=== PATIENT | male | born 1980 | race Caucasian/White ===

== ENCOUNTER 2017-02-03 08:00 | Day surgery (SDC) | payer OTHER ==
[2017-02-03] VITALS (13 sets, daily range): BP systolic 109–129; BP diastolic 56–77; PULSE 47–73; RESP 10–20; O2SAT 95–100
[~2017-02-03] VITALS: Ht 182.9 cm; Wt 91.0 kg
--- NOTE | 2017-02-03 07:05 | PCM.HPANE ---
Patient Data Surgeon Admitting Provider: Attending Provider:Tyrese Lim DO Primary Care Physician:Michelle Goodrich Other Provider:Rob Benjamin Anesthesia Reason for Visit Right Distal Fibula Fracture Ht/WT & BMI Height (Feet): 6 Height (Inches): 0 Weight (Kilograms): 91 Body Mass Index 27.00 Allergies Coded Allergies: No Known Allergies (Unverified , 06/29/16) Past Anesthesia History Anesthesia History: Denies:: Abnormal Airway, Anesthesia Reactions, Difficult Intubation, Fam Anesthesia Reaction, Fam Malignant Hypertherm, Malignant Hyperthermia Diabetes History Hx Diabetes?: No MRSA MRSA: No Medications Hypertension Medication: No Home Meds Incl Beta Elena: No Reported Medications Hydrocodone-Acetaminophen 7.5-325 mg 1 Each Tablet1 Tablet PO Q4H PRN For Pain Ref 0 01/30/17 Hydrocodone-Acetaminophen 5-325 mg 1 Each Tablet1 Tablet PO Q8H PRN For Pain Ref 0 01/30/17 History History of ENT Problems?: No HEENT History: Denies:: Abnormal Airway Cataracts Difficult Intubation Dysphagia Glaucoma Hearing Problem Sinus Problem TMJ Denture Type: None Teeth Condition: Within Normal Limits Hx of Heart Problems?: No Cardiovascular History: Denies:: AICD Abdominal Aortic Aneurism Atrial Fibrillation Cardiac Surgery Chest Pain Congestive Heart Failure Coronary Artery Disease Edema Heart Murmur Hypertension Irregular Heartbeat Pacemaker Peripheral Vascular Rheumatic Fever Thrombophlebitis Valvular Heart Disease Hx of Respiratory Problem?: No Respiratory History: Denies:: Asthma COPD Emphysema Oxygen Administration Pneumonia Tuberculosis Use of C-PAP Machine Use of Inhalers / NEBS Hx Neurologic Problems?: No Neurological History: Denies:: Alzheimer's Disease CVA Dementia Dizziness Headaches Multiple Sclerosis Parkinson's Disease Seizures Hx of GI Problems?: No Hx of Problems?: No Genitourinary History: Denies:: Kidney Stones Urinary Tract Infection Male Hx: Denies:: Prostate Problems Skin History: Positive for:: History Skin Disorders? (left wrist blister from using crutches) Denies:: Pressure Ulcers Hx Musculoskeletal Problems?: Yes Musculoskeletal History: Positive for:: Musculoskeletal Trauma (right ankle fx current admission ) Denies:: Back Injury Fibromyalgia Myasthenia Gravis Osteoarthritis Systemic Lupus Hx of Psycho/Social Problems?: Yes Psycho Social History: Positive for:: Anxiety (situational - no meds) Denies:: Hx Depression Hx Surgeries?: Yes (R hand) Hx Any Other Health Problems?: Yes Other History: Positive for:: Hospitalization (hx of skillsaw injury) Denies:: Cancer Thyroid Disease History Blood Transfusions: Positive for:: Accept Blood Products? Denies:: Blood Transfusions Hx Diabetes: No Hx Alcohol Use: YesAlcoholic Drinks Per Day: 10 drinks weeklyHx Substance Use : No (prior hx of cocaine use 2011) Smoking Status: Unknown if Ever Smoker Have You Smoked inLast 12 mo: No Stop/Bang S-Snoring: Do You Snore Loudly: No T-Tired: feel tired, fatigued: No O-Obsered: Observed not breath: No P-Blood Pressure: treated: No B- Body Mass Index > 35 kg/m2: No A- Age over 50: No N- Neck Large Circumference: No G- Gender Male: Yes DEE Total Score: 1 Risk Assessment Category Category 1A: Patient has history of documented sleep apnea, and HAS NOT received any narcotic, sedative or anesthesia administration during this stay. Category 1B: Patient has history of documented sleep apnea, and HAS received any narcotic , sedative or anesthesia administration during this stay Category 2: Patient has SUSPECTED Obstructive Sleep Apnea, and HAS received any narcotic , sedative or anesthesia administration during this stay. Category 3: Patient has SUSPECTED Obstructive Sleep Apnea and HAS NOT received narcotic, sedative or anesthesia administration during this stay. Category 4: Outpatient in Procedural Areas with known sleep apnea or who screen positive for High Risk via the STOP/BANG questionnaire. Exam Exam General Appearance: Alert, Oriented X3, Cooperative HEENT/AIRWAY: MP 2, Neck Movement (from), Mouth Opening (wnl) Lungs: Clear to Auscultation Heart: Exam Unremarkable Plan Impression Patient chart reviewed, patient interviewed and anesthestic plan with risks, benefits, and alternatives discussed, and informed consent obtained. ASA Physical Status: ASA2 Mod Systemic Disease Anesthetic Plan: GA Bene/Risks/Altern/Consents: Yes HP Complete Prior to Induction: Yes Jose Calvin MD Feb 03, 2017 07:05
[~2017-02-03 08:00] MED LIST: Acetaminophen IV 1,000 MG in IV Premix 1 EACH IV ONE; HYDR-3825 PO; HYDR-4003 PO; Lactated Ringer's 1,000 ML IV ONE
[2017-02-03] MEDS ORDERED: fentaNYL-PF 50 mCg/mL 2 mL Inj ONE (08:01)
[2017-02-03] MEDS ORDERED: Ondansetron 2 mg/mL 2 mL Inj ONE (08:01)
[2017-02-03] MEDS ORDERED: Rocuronium 10 mg/mL 5 mL Inj ONE (08:01)
[2017-02-03] MEDS ORDERED: Glycopyrrolate 0.2 MG/ML 1mL Inj ONE (08:01)
[2017-02-03] MEDS ORDERED: Neostigmine 1 mg/mL 10 mL Inj ONE (08:01)
[2017-02-03] MEDS ORDERED: Propofol 10,000 mCg/mL 20 mL Inj ONE (08:01)
[2017-02-03] MEDS ORDERED: Lactated Ringer's 1,000 ML IV ONE (08:31)
[2017-02-03] MEDS ORDERED: LORazepam 1 mg Tablet PO PRN (09:00)
[2017-02-03] MEDS ORDERED: HYDROmorphone 0.5 mg/0.5 mL iSecure Syringe IVPUSH PRN (09:00)
[2017-02-03] MEDS ORDERED: fentaNYL-PF 50 mCg/mL 2 mL Inj IVPUSH PRN (09:00)
[2017-02-03] MEDS ORDERED: CeFAZolin Inj 2 gm / 50mL D5W IV ONE (09:09)
[2017-02-03] MEDS ORDERED: Ropivacaine-PF 0.5% 30 mL Inj INJ ONE (12:36)
[2017-02-03] MEDS ORDERED: Lactated Ringer's 1,000 ML IV SCH (12:59)
[2017-02-03] MEDS ORDERED: Lactated Ringer's 500 ML IV PRN (12:59)
[2017-02-03] MEDS ORDERED: hydrALAZINE 20 mg/mL Inj IVPUSH PRN (13:00)
[2017-02-03] MEDS ORDERED: EPHEDrine Sulfate 50 mg/mL Inj IVPUSH PRN (13:00)
[2017-02-03] MEDS ORDERED: Atropine 0.4 mg/mL Inj IVPUSH PRN (13:00)
[2017-02-03] MEDS ORDERED: Dexamethasone 4 mg/mL Inj IVPUSH PRN (13:00)
[2017-02-03] MEDS ORDERED: Phenylephrine 10,000 mCg/mL Inj IVPUSH PRN (13:00)
[2017-02-03] MEDS ORDERED: Labetalol 5 mg/mL 4 mL Inj IV PRN (13:00)
[2017-02-03] MEDS ORDERED: Ondansetron 2 mg/mL 2 mL Inj IVPUSH PRN ×2 (13:00→13:40)
[2017-02-03] MEDS ORDERED: diphenhydrAMINE 25 mg Capsule PO PRN (13:40)
[2017-02-03] MEDS ORDERED: Magnesium Hydroxide 10 mL Oral Concentration PO PRN (13:40)
[2017-02-03] MEDS ORDERED: Polyethylene Glycol (PEG) 17 Gm Powder PO PRN (13:40)
[2017-02-03] MEDS ORDERED: HYDROmorphone 2 mg/mL Inj IVPUSH PRN (13:40)
--- NOTE | 2017-02-03 13:43 | PCM.ANEP1 ---
Post Anesthesia PACU Phase 1 Assessment Vital Signs Vital Signs Date Time Temp Pulse Resp B/P Pulse Ox O2 Delivery O2 Flow Rate FiO2 02/03/17 08:32 36.4 73 14 119/73 95 Room Air Anesthetic Administered: GA Level of Alertness: Awake, talking DE LEON's with Equal Strength: Yes Pain: No Nausea or Vomiting: No CV Function & Hydration Stable: Yes Airway Device: Oxygen Delivery: Room Air Lungs: Normal Air Movement PACU Phase 2 Assessment Complications: No Follow up Care: No Patient Instructions Provided: N/A Jose Calvin MD Feb 03, 2017 13:43
[2017-02-03] MEDS: fentaNYL-PF 50 mCg/mL 2 mL Inj IVPUSH PRN ×4 (13:48→14:11)
[2017-02-03] MEDS: HYDROmorphone 1 mg/mL Inj IVPUSH PRN ×4 (13:48→23:35)
--- NOTE | 2017-02-03 15:00 | NUR ---
POST OP Pt arrived to OSC unit, 1008, via gurney, from PACU at 1500. Pt able to scoot self over to bed with minimal assistance. A&OX3 - groggy but awake, VSS - CPOx in place d/t narcotic admin, Moves all extremities with exception to RLE s/p ORIF, Splint and dressing CDI. Foot elevated and iced. IV patent and infusing. Pt c/o pain 7-8/10, 0.5mg IVP Dilaudid given. All belongings brought down with pt. Family present. Pt oriented to room and call light in reach. Tolerating ice water - ADAT. Care continues.
[2017-02-03] MEDS ORDERED: HYDROmorphone 0.5 mg/0.5 mL iSecure Syringe ONE (15:15)
[2017-02-03] MEDS: 0.9% Sodium Chloride 1,000 ML IV SCH (15:22)
[2017-02-03] MEDS: Sodium Chloride LOK Flush 10 mL Syringe IV SCH (16:30)
[2017-02-03] MEDS ORDERED: CeFAZolin Inj 2 GM in IV Premix 1 EACH IV SCH (16:30)
[2017-02-03] MEDS: oxyCODONE-Acetamin 5-325 mg Tablet PO PRN ×3 (17:38→21:29)
--- NOTE | 2017-02-03 18:48 | NUR ---
Late Ancef Pt receiving 1630 Post op Ancef dose late d/t pharmacy delay. Call to pharmacy prior to 1630 (~1615) and inquired re: dose. Stated they would look into it and send one up. Noted that original order dc'd and new dose scheduled for 1700. Still no dose received. Called for second time and talked to different pharmacy technician per diem, stated 'I just sent that dose a couple minutes ago.' Waited for dose, no arrival. peoplesoft consultant called and spoke with pharmacist - dose received at ~1830.
[2017-02-03] MEDS: CeFAZolin Inj 2 GM in IV Premix 1 EACH IV SCH (20:05)
[2017-02-03] MEDS: Senna-Docusate 8.6-50 mg Tablet PO SCH (20:06)
[2017-02-03] MEDS ORDERED: HYDROmorphone 1 mg/mL Inj IVPUSH PRN (22:47)
--- NOTE | 2017-02-04 00:01 | OP ---
[address] [address] OPERATIVE REPORT PATIENT: KAITLYNN PEARSON : 1980 MR#: [id number] ADMIT: 02/03/2017 JOB ID: [id number] DATE OF SURGERY: 02/03/2017 PREOPERATIVE DIAGNOSIS(ES): Right bimalleolar ankle fracture. POSTOPERATIVE DIAGNOSIS(ES): Right bimalleolar ankle fracture. PROCEDURE: Right ankle open reduction and internal fixation of bimalleolar fracture with syndesmotic fixation. SURGEON: Tyrese Lim MD. ANESTHESIA: General. INDICATIONS: The patient is a 36-year-old male who injured his right ankle while working in [place]. He was unable to ambulate after the injury and had a posterior malleolus and lateral malleolus fracture. We did a stress x-ray and he had medial clear space widening on the film; and therefore, I felt that this fracture was unstable and would be best treated with open reduction and internal fixation. We discussed the risks, benefits and possible complications of surgery including, but not limited to, injury to nerves and vessels, infection, bleeding, incomplete relief of symptoms, stiffness, need for additional procedures. The patient had good understanding, all questions were answered, and he wished to proceed. PROCEDURE IN DETAIL: The patient was brought to the operating room. He was given a preoperative antibiotic and general anesthetic. The right lower extremity was sterilely prepped and draped. A tourniquet was used for hemostasis. An incision was made over the posterolateral border of the fibula. Dissection was carefully carried through to the subcutaneous tissue and the fracture was encountered. The fracture hematoma and some interposed periosteum was removed from the fracture site. The wound was irrigated and the fracture was then reduced with a combination of traction and bone reduction forceps. A lag screw was then placed. I elected to use a 2.7 mm 24 mm length lag screw which had excellent purchase. This was placed in standard AO fashion technique. Next, a one-third tubular plate was bent in order to accommodate his anatomy and secured proximally with a 3.5 cortex screw and then distally with two 4-0 cancellous screws yielding excellent fixation. Two additional cortex screws were placed proximally. I then did a Cotton test and the patient did still have some residual medial clear space widening. Therefore, I placed a 3.5 mm syndesmotic screw across four cortices into the tibia, yielding anatomic reduction of the mortise. The C-arm imaging was used to confirm reduction. The wound was then irrigated and closed with 2-0 and 3-0 Vicryl for the fascia and subcu. The skin was closed with interrupted 4-0 nylon suture. Naropin was added as an adjunct local anesthetic. Sterile dressings were applied, as well as posterior splint with stirrup. The patient tolerated the procedure well. Blood loss was minimal. POSTOPERATIVE PROTOCOL: Have the patient remain nonweightbearing on the right lower extremity. Ice and elevate and use crutches. Will plan to keep him overnight in the hospital for antibiotics and pain control, and also to work with physical therapy. Will have him follow back up in the clinic in two weeks for cast removal and suture removal at that time, and we will switch him to a short-leg cast for an additional 3-4 weeks, and then have him follow up with myself with cast removal and x-rays and transition to a CAM walker boot at that time. Anticipate that he will need to be off work for 90 days or more. Also, he is given a prescription for Percocet 5/325 for pain.
[2017-02-04] MEDS: Sodium Chloride LOK Flush 10 mL Syringe IV SCH ×3 (00:30→16:30)
[2017-02-04 00:53] VITALS: BP 105/61; PULSE 81; RESP 18; O2SAT 94
[2017-02-04] MEDS: 0.9% Sodium Chloride 1,000 ML IV SCH ×2 (02:31→09:40)
[2017-02-04] MEDS: HYDROmorphone 1 mg/mL Inj IVPUSH PRN ×3 (02:32→07:22)
[2017-02-04] MEDS: CeFAZolin Inj 2 GM in IV Premix 1 EACH IV SCH (04:50)
--- NOTE | 2017-02-04 05:00 | NUR ---
Pain Pain not well controlled at start of shift, discussed with Md continuous improvement coach; obtained range for IV medication which has been keeping pt more comfortable. Continuing to use ice and elevation as well. Pain reported under better control by chemist organic, pt observed sleeping. Pulse oximetry in use. Hourly rounding ongoing.
[2017-02-04 06:34] VITALS: BP 112/68; PULSE 62; RESP 20; O2SAT 93
[2017-02-04 07:47] VITALS: BP 73/73; PULSE 68; RESP 18; O2SAT 97
[2017-02-04] MEDS: Senna-Docusate 8.6-50 mg Tablet PO SCH (08:30)
[2017-02-04] MEDS: oxyCODONE-Acetamin 5-325 mg Tablet PO PRN (09:28)
[2017-02-04] MEDS ORDERED: hydrOXYzine Pamoate 25 mg Capsule PO PRN (10:30)
--- NOTE | 2017-02-04 11:46 | NUR ---
Pt. screened and interviewed about home environment. Home has ramp entry, walk-in shower with seat, manageable toilet. He has good support from his SO. Pt. has been using crutches prior to surgery maintaining NWB without incident. He reports independence with dressing and ADLs. Pt. not able to get out of bed during visit secondary to pain. OT will be unable to formally assess pt. today due to scheduling. But based on pt's age, athleticism, experience with other fractures, I don't anticipate pt. to have any excessive functional difficulty. I did recommend that pt. identify a hobby/interest/activity that is sedentary in nature while recovering. No charge time. Karlos Briseno, OTR/L
[2017-02-04] MEDS: oxyCODONE-Acetamin 10-325 mg Tablet PO PRN ×2 (12:38→16:05)
--- NOTE | 2017-02-04 14:11 | NUR ---
Social Work- Brief Note/Discharge Data: EMR reviewed. Pt is a 36 year old male admitted as a day surgery pt. Pt's insurance is [facility]. NOK is mother Patsy Ceballos, . SW received discharge planning order for pt. SW met with pt at bedside regarding discharge plan. Pt resides at home where his girlfriend assists with ADLs. Pt is non weightbearing for six more weeks. PT and OT have cleared pt for home. No discharge needs identified at this time. Pt to discharge home with mother to transport via POV. Assessment: Pt who is non weightbearing for six weeks Plan: PT and OT have cleared pt for home. No discharge needs identified at this time. Pt to discharge home with mother to transport via POV. GER Ybarra
--- NOTE | 2017-02-04 14:16 | NUR ---
PAIN Pt c/o pain 7-8/10. Had received IVP medications throughout the night. Pt aware of the need to be on PO meds for discharge readiness. PA-Shira present and aware of pt c/o pain. Nonverbally pt does not appear to be in severe pain; although stating he is. Pt noted to be sleeping just prior to noon till 1215 with intermittent checks and then called just after 1230 and received Percocet with Vistaril. dial marker present and administered for pt, encouraged pt to be up and working with PT. Worked with PT at ~1330 or so and per PT, pt 'jumped' right up and was cleared from their standpoin, still stating 7-8/10 pain. Care continues.
[2017-02-04 14:27] VITALS: BP 127/84; PULSE 80; O2SAT 97
--- NOTE | 2017-02-04 15:38 | PCM.PNORTH ---
Subjective Date of Service: Feb 04, 2017 Visit Information: Reason for Visit Right Distal Fibula Fracture Surgery/Surgery Date Post-Op Day # Date of Admission: Hospital Day # Subjective Status post day #1 right ankle ORIF with syndesmotic fixation. Patient doing well, understands that his ankle well heard. Agrees that he will be able to be discharged with Percocet and oxycodone for breakthrough pain, believes that he can manage this on his own as he has had fractures in the past. He would like to go home today. Postop General: No Shortness of Breath, No Chest Pain Objective Exam Objective Patient is alert and oriented 3. Answering questions appropriately. Patient is sitting up in the bed and not in acute distress today. Dressing and splint are clean dry and intact. Calf is soft and nontender. Sensation and pulses intact, patient able to wiggle toes. Vital Signs and I/O Vital Sign - Last Date Time Temp Pulse Resp B/P Pulse Ox O2 Delivery O2 Flow Rate FiO2 02/04/17 14:27 36.9 80 127/84 97 Room Air 02/04/17 07:47 18 Intake and Output 02/03/17 02/03/17 02/04/17 Cumulative From/Thru 15:00 23:00 07:00 01/30/17 17:09 - 02/04/17 06:34 Intake Total 1100 ml 400 ml 2258 ml 3758 ml Output Total 325 ml 1550 ml 1875 ml Balance 1100 ml 75 ml 708 ml 1883 ml Intake Oral 400 ml 850 ml 1250 ml IV Total 1100 ml 1408 ml 2508 ml Output Urine Total 325 ml 1550 ml 1875 ml # Bowel Movements 0 0 Assessment & Plan Impression Status post day #1 right ankle ORIF with syndesmotic fixation. Patient stable, ready to go home. Problems: Plan Patient will remain nonweightbearing on the right lower extremity. Patient will remain in splint and keep this clean dry and intact for 2 weeks. Patient will use crutches for ambulation. Patient will be given a prescription for Percocet 5/325 mg tablets to take 1-2 pills every 6 hours if needed for pain, patient will also be given oxycodone 5 mg tablets to take in between these doses for breakthrough pain if needed only. Patient will follow up in 2 [facility] with PA for suture removal, x-rays and placement into cast. Patient will follow-up in [address] Tyrese Lim. Milton Silva PA-C Feb 04, 2017 15:38
--- NOTE | 2017-02-04 15:39 | PCM.DIORTH ---
Ortho Discharge Instruction Date of Service: Feb 04, 2017 Dates of Hospitalization Date of Hospital Admission 02/03/2017 Providers Admitting Physician: Primary Care Physician: Kari Barth PA-C Attending Physician: Tyrese Lim DO Diet Discharge Diet: No restrictions Activity Right Lower Extremity: Non-weight Bearing Additional Instructions Discharge Instructions Patient will remain nonweightbearing on the right lower extremity. Patient will remain in splint and keep this clean dry and intact for 2 weeks. Patient will use crutches for ambulation. Patient will be given a prescription for Percocet 5/325 mg tablets to take 1-2 pills every 6 hours if needed for pain, patient will also be given oxycodone 5 mg tablets to take in between these doses for breakthrough pain if needed only. Patient will follow up in 2 weeks at [facility] with BOLA for suture removal, x-rays and placement into cast. Patient will follow-up in [address] Tyrese Lim. Milton Silva PA-C Feb 04, 2017 15:39
--- NOTE | 2017-02-04 15:49 | PCM.DC.ORT ---
Discharge Summary Date of Service: Feb 04, 2017 Date of Hospital Admission: 02/03/2017 Date of Surgery: Feb 03, 2017 Date of Discharge: Feb 04, 2017 Reason for Hospitalization: Right ankle fracture bimalleolar with syndesmotic disruption Procedures Performed: Right ankle area for syndesmotic fixation Hospital Course: Patient presented to [facility] surgical suite for the procedure of right ankle ORIF with syndesmotic fixation by Dr. Tyrese Lim on 02/03/2017. Patient was prepped for surgery and the procedure was performed successfully, patient was discharged to PACU under stable condition, tolerated the procedure well. Once stabilized in PACU and pain well controlled, patient was admitted to the hospital floor for observation, pain control, and progression with physical therapy. The first day the patient was able to resume a regular diet, void on their own, not having any problems with nausea or vomiting. The patient did not have any adverse falls, reactions, or events were all in the hospital. The patient began working with physical therapy on day one then progressed quite well with reasonable pain control. On day 1 the patient was able to ambulate safely on their own with crutches, and pain was controlled sufficiently to be discharged to home. Patient's pain was well controlled and he was able to calmly make phone calls despite stating that his pain was 8 out of 10. When we gave him more narcotics he is pulse rate dropped below 60 and his blood pressure also dropped. It was discussed and patient as well as myself and Dr. Lim agreed that he would be fine on the Percocet and should not take more than this. We will utilize aspirin 325 mg by mouth twice a day for 6 weeks for DVT prophylaxis. The patient was discharged to home under stable condition with plan to follow- up with patient at 2 weeks for a postoperative appointment. Diagnosis at Time of Discharge Status post day right ankle ORIF with syndesmotic fixation Problems: Orthopedic Follow up Plan: In Two Weeks in my clinic Discharge Instructions: Patient will remain nonweightbearing on the right lower extremity. Patient will remain in splint and keep this clean dry and intact for 2 weeks. Patient will use crutches for ambulation. Patient will be given a prescription for Percocet 5/325 mg tablets to take 1-2 pills every 6 hours if needed for pain, patient will also be given oxycodone 5 mg tablets to take in between these doses for breakthrough pain if needed only. Patient will follow up in 2 weeks at [facility] with BOLA for suture removal, x-rays and placement into cast. Patient will follow-up in [address] Tyrese Lim. No Active Prescriptions or Reported Meds Milton Silva PA-C Feb 04, 2017 15:48
[2017-02-04 16:24] VITALS: BP 110/67; PULSE 78; O2SAT 95
--- NOTE | 2017-02-04 17:11 | NUR ---
Discharge Pt to discharge to home with his and his mother; dressed ind in room with crutches, A&Ox3, VSS, c/o pain and pain medication given before discharge pt reports "pain bearable." IV access discontinued. given Rx's got take to pharmacy of choice and shrimp picker medications before discharge of patient. Patient and pt's mother given written and verbal discharge instructions to take all pain medications as prescribed, take plenty of fiber in diet due to side effect of constipation with PO medications, instructed no weight bearing for two weeks, keep RLE dry and elevated, and to f/u with PA at [facility] in [address] Lim later. Pt wheeled off unit by aide in wheelchair with family member and all personal belongings with patient family member.
== END 2017-02-04 17:13 | disposition home or self-care (01) ==
LOC: SAS 08:00 → OSC 14:57 → SAS 02-04 17:13
PROVIDERS: ATTEND Orthopaedic Surgery
DX: S82.841A Displaced bimalleolar fracture of right lower leg, initial encounter for closed fracture (principal); W18.2XXA Fall in (into) shower or empty bathtub, initial encounter; Y93.E1 Activity, personal bathing and showering; Y92.012 Bathroom of single-family (private) house as the place of occurrence of the external cause
CPT/HCPCS: 27814; 27829; 97161; C1713; J0131; J0690; J1170; J1885; J2175; J2250; J2405; J2710; J2795; J3010; J7030; J7120; Q0177

== ENCOUNTER → 2017-04-18 | Day surgery (SDC) | payer OTHER ==
[~2017-04-18] VITALS: Ht 182.9 cm; Wt 89.5 kg
[2017-04-18] VITALS (7 sets, daily range): BP systolic 95–120; BP diastolic 50–73; PULSE 51–56; RESP 7–16; O2SAT 97–100
[~2017-04-18] MED LIST changes: +ACET325T51 PO; -Acetaminophen IV 1,000 MG in IV Premix 1 EACH IV ONE; +Atropine 0.4 mg/mL Inj IVPUSH PRN; +CeFAZolin 2 Gm/50 mL D5W IV Premix IV ONE; +CeFAZolin Inj 2 gm / 50mL D5W IV ONE; +Dexamethasone 4 mg/mL Inj IVPUSH PRN; +Dexamethasone 4 mg/mL Inj ONE; +EPHEDrine Sulfate 50 mg/mL Inj IVPUSH PRN; -HYDR-3825 PO; -HYDR-4003 PO; +HYDROmorphone 1 mg/mL Inj IVPUSH PRN; +Ketamine 10 mg/mL 20 mL Inj ONE; +Labetalol 5 mg/mL 20 mL Inj IV PRN; -Lactated Ringer's 1,000 ML IV ONE; +Lactated Ringer's 1,000 ML IV SCH; +Lactated Ringer's 500 ML IV PRN; +MetoCLOpramide 5 mg/mL 2 mL Inj IVPUSH PRN; +OXYC1TAB24 PO; +Ondansetron 2 mg/mL 2 mL Inj IVPUSH PRN; +Phenylephrine 10,000 mCg/mL Inj IVPUSH PRN; +Propofol 10,000 mCg/mL 20 mL Inj ONE; +Ropivacaine-PF 0.5% 30 mL Inj INFILTRATE ONE; +fentaNYL-PF 50 mCg/mL 2 mL Inj IVPUSH PRN; +fentaNYL-PF 50 mCg/mL 20 mL Inj ONE; +hydrOXYzine Pamoate 25 mg Capsule PO PRN; +oxyCODONE-Acetamin 5-325 mg Tablet PO PRN
[2017-04-18] MEDS: Lactated Ringer's 1,000 ML IV SCH ×2 (05:28→11:13)
--- NOTE | 2017-04-18 11:06 | PCM.HPANE ---
Patient Data Date of Service: Apr 18, 2017 Surgeon Admitting Provider: Attending Provider:Tyrese Lim DO Primary Care Physician:Kari Barth PA-C Other Provider:Rob Benjamin Anesthesia Reason for Visit Right Ankle Painful Hardware Ht/WT & BMI Height (Feet): 6 Height (Inches): 0.00 Weight (Kilograms): 89.5 Body Mass Index 26.00 Allergies Coded Allergies: No Known Allergies (Unverified , 04/10/17) Past Anesthesia History Anesthesia History: Denies:: Abnormal Airway, Anesthesia Reactions, Difficult Intubation, Fam Anesthesia Reaction, Fam Malignant Hypertherm, Malignant Hyperthermia Diabetes History Hx Diabetes?: No MRSA MRSA: No Medications Home Meds Incl Beta Elena: No Reported Medications oxyCODONE-Acetaminophen 5-325 mg 1 Each Tablet1 Tab PO Q6H PRN For Pain Ref 0 04/11/17 Acetaminophen 325 Mg [id number] Mg PO Q4H PRN For Pain Ref 0 04/11/17 History History of ENT Problems?: No HEENT History: Denies:: Abnormal Airway Cataracts Difficult Intubation Dysphagia Hearing Problem Sinus Problem TMJ Denture Type: None Teeth Condition: Within Normal Limits Hx of Heart Problems?: No Cardiovascular History: Denies:: AICD Abdominal Aortic Aneurism Atrial Fibrillation Cardiac Surgery Chest Pain Congestive Heart Failure Edema Heart Murmur Hypertension Irregular Heartbeat Pacemaker Rheumatic Fever Thrombophlebitis Valvular Heart Disease Hx of Respiratory Problem?: No Respiratory History: Denies:: Asthma COPD Emphysema Oxygen Administration Pneumonia Tuberculosis Use of C-PAP Machine Hx Neurologic Problems?: No Neurological History: Denies:: Alzheimer's Disease CVA Dementia Dizziness Headaches Multiple Sclerosis Parkinson's Disease Seizures Hx of GI Problems?: No Hx of Problems?: No Genitourinary History: Denies:: Kidney Stones Urinary Tract Infection Male Hx: Denies:: Prostate Problems Skin History: Denies:: History Skin Disorders? Pressure Ulcers Hx Musculoskeletal Problems?: Yes Musculoskeletal History: Positive for:: Musculoskeletal Trauma (right ankle fx hardware removal current admission problem) Denies:: Back Injury Systemic Lupus Hx of Psycho/Social Problems?: Yes Psycho Social History: Positive for:: Anxiety (situational - no meds) Denies:: Hx Depression Hx Surgeries?: Yes (R hand, left ankle orif) Hx Any Other Health Problems?: Yes Other History: Positive for:: Hospitalization (hx of skillsaw injury) Denies:: Cancer Thyroid Disease History Blood Transfusions: Denies:: Blood Transfusions Hx Diabetes: No Hx Alcohol Use: YesHx Substance Use: No (prior hx of cocaine use 2011) Smoking Status: Unknown if Ever Smoker Have You Smoked inLast 12 mo: No Stop/Bang S-Snoring: Do You Snore Loudly: No T-Tired: feel tired, fatigued: No O-Obsered: Observed not breath: No P-Blood Pressure: treated: No B- Body Mass Index > 35 kg/m2: No A- Age over 50: No N- Neck Large Circumference: No G- Gender Male: Yes DEE Total Score: 1 DEE Risk Assessment: Low Risk, <3 Yes Risk Assessment Category Category 1A: Patient has history of documented sleep apnea, and HAS NOT received any narcotic, sedative or anesthesia administration during this stay. Category 1B: Patient has history of documented sleep apnea, and HAS received any narcotic , sedative or anesthesia administration during this stay Category 2: Patient has SUSPECTED Obstructive Sleep Apnea, and HAS received any narcotic , sedative or anesthesia administration during this stay. Category 3: Patient has SUSPECTED Obstructive Sleep Apnea and HAS NOT received narcotic, sedative or anesthesia administration during this stay. Category 4: Outpatient in Procedural Areas with known sleep apnea or who screen positive for High Risk via the STOP/BANG questionnaire. Exam Exam Vital Signs Vital Signs Date Time Temp Pulse Resp B/P Pulse Ox O2 Delivery O2 Flow Rate FiO2 04/18/17 09:38 36.5 52 16 118/73 97 Room Air General Appearance: Alert, Oriented X3, Cooperative, No Acute Distress HEENT/AIRWAY: MP 2 Lungs: Clear to Auscultation, Normal Air Movement Heart: Exam Unremarkable, Regular Rate/Rhythm, No Murmurs/Rubs/Gallops Meds/Labs/Diagnostics Admission Meds Current Medications Lactated Ringer's (Lr) 1,000 ml @ 120 mls/hr Q8H20M IV Last administered on t 05:28; Start 04/18/17 at 05:00; Stop 04/18/17 at 13:19 Plan Impression Patient chart reviewed, patient interviewed and anesthestic plan with risks, benefits, and alternatives discussed, and informed consent obtained. NPO per Anesth. Guidelines: Yes ASA Physical Status: ASA2 Mod Systemic Disease Anesthetic Plan: GA Bene/Risks/Altern/Consents: Yes HP Complete Prior to Induction: Yes Naeem Rock DO Apr 18, 2017 11:06
--- NOTE | 2017-04-18 13:08 | OP ---
[address] [address] OPERATIVE REPORT PATIENT: KAITLYNN PEARSON : 1980 MR#: [id number] ADMIT: 04/18/2017 JOB ID: [id number] DATE OF SURGERY: 04/18/2017 PREOPERATIVE DIAGNOSIS(ES): Right ankle retained hardware. POSTOPERATIVE DIAGNOSIS(ES): Right ankle retained hardware. PROCEDURE: Right ankle syndesmotic screw hardware removal. SURGEON: Tyrese Lim DO. FOLDER TIER: None. INDICATIONS: The patient is a 36-year-old male who sustained a right ankle bimalleolar fracture and underwent open reduction and internal fixation with myself on February 03, 2017, and had been doing fairly well but was having some stiffness especially with dorsiflexion which was felt to be due to the retained syndesmotic screw. I felt that his syndesmosis had healed at this point and we could remove the syndesmotic screw. We discussed the risks, benefits and possible complications of surgery. All questions were answered. He wished to proceed. PROCEDURE IN DETAIL: The patient was brought to the operating room. He was given a preoperative antibiotic, LMA general anesthetic. The right lower extremity was sterilely prepped and draped. An Esmarch tourniquet was used over the ankle. An incision was made over his syndesmotic screw, and a C-arm was used to confirm location of the screw head. Dissection was carefully carried down through the subcutaneous tissue and onto the syndesmotic screw. Soft tissue was removed from the screw head. The screw was removed without any difficulty, and the wound was irrigated. I then did a stress ankle view with fluoro to ensure that the syndesmosis was indeed healed and that the ankle stable, which it was. The wound was then closed with interrupted nylon suture. Naropin was added as an adjunct local anesthetic. Sterile dressings were applied. Patient tolerated the procedure well. Blood loss was minimal. POSTOPERATIVE PROTOCOL: Have the patient weightbear to tolerance, use crutches as needed, ice and elevate, and follow up in two weeks for suture removal. He was given a prescription for Percocet 5/325, #20, for pain.
--- NOTE | 2017-04-18 13:12 | PCM.ANEP1 ---
Post Anesthesia PACU Phase 1 Assessment Date of Service: Apr 18, 2017 Vital Signs Vital Signs Date Time Temp Pulse Resp B/P Pulse Ox O2 Delivery O2 Flow Rate FiO2 04/18/17 12:52 51 16 119/63 100 Room Air 04/18/17 12:24 56 16 120/65 100 Room Air 04/18/17 12:10 54 14 106/66 100 Room Air 04/18/17 12:00 54 9 106/60 100 Simple Mask 10 04/18/17 11:54 52 8 106/62 100 Simple Mask 10 04/18/17 11:47 36.0 54 7 95/50 98 Simple Mask 10 04/18/17 09:38 36.5 52 16 118/73 97 Room Air Anesthetic Administered: GA Level of Alertness: Awake, talking DE LEON's with Equal Strength: Yes Pain: No Nausea or Vomiting: No CV Function & Hydration Stable: Yes Airway Device: LMA rmoved by PACU staff in my presence in an atraumatic fashion. Lungs: Clear to Auscultation, Normal Air Movement Dermatome Level: Full Sensation PACU Phase 2 Assessment Complications: No Patient Instructions Provided: N/A Naeem Rock DO Apr 18, 2017 13:12
== END | disposition home or self-care (01) ==
LOC: SAS 09:01
PROVIDERS: ATTEND Orthopaedic Surgery
DX: T85.848A Pain due to other internal prosthetic devices, implants and grafts, initial encounter (principal); Z96.7 Presence of other bone and tendon implants; Z87.891 Personal history of nicotine dependence
CPT/HCPCS: 20680; 76000; J0690; J1100; J2250; J2704; J2795; J3010; J7120